=== PATIENT | female | born 1985 | race Asian ===

== ENCOUNTER 2016-10-18 00:11 | Inpatient (IN) | payer SELFPAY ==
[~2016-10-18] VITALS: Ht 160 cm; Wt 63.5 kg
[2016-10-18] MEDS: LR 1,000 ML IV SCH ×4 (00:55→15:19)
[2016-10-18] MEDS ORDERED: LR 1,000 ML IV ONE (01:09)
[2016-10-18 01:15] VITALS: BP_SYST 110
[2016-10-18] MEDS ORDERED: TERBUTALINE SULFATE 1 MG/ML VIAL SUBCUT ONE (01:15)
[2016-10-18 01:25] LABS: BASOPHILS % (AUTO) 0.3 % (0.0-2.0); EOSINOPHILS # (AUTO) 0.1 K/uL (0.0-0.4); HEMOGLOBIN 13.1 g/dL (12.0-16.0); LYMPHOCYTES # (AUTO) 1.8 K/uL (1.0-5.5); MEAN CORPUSCULAR HEMOGLOBIN 33 pg (27-31); MEAN CORPUSCULAR HGB CONC 35 % (32-36); MEAN CORPUSCULAR VOLUME 92 fL (79.0-98.0); MONOCYTES # (AUTO) 0.5 K/uL (0.0-1.0); NEUTROPHILS # (AUTO) 5.3 K/uL (1.8-7.7); NEUTROPHILS % (AUTO) 68.7 % (40.0-70.0); PLATELET COUNT (AUTO) 111 K/uL (130-430); RED BLOOD CELL COUNT(AUTO) 4.01 MIL/uL (4.2-6.2); RED CELL DISTRIBUTION WIDTH 13.2 % (9.0-15.0); WHITE BLOOD COUNT (AUTO) 7.7 K/uL (4.8-10.8)
[2016-10-18] MEDS: OXYTOCIN/NORMAL SALINE 1,000 ML IV SCH ×2 (02:16→21:43)
[2016-10-18] MEDS: NALBUPHINE HCL 10 MG/ML AMP IVP PRN ×2 (06:17→08:33)
[2016-10-18] MEDS ORDERED: fentaNYL CITRATE/PF 100 MCG/2 ML AMP ONE (09:46)
[2016-10-18] MEDS ORDERED: FENT2mCg/mL-ROPIVA0.2%/NS EPID 150 ML EP ONE (09:47)
[2016-10-18] MEDS ORDERED: LR 500 ML IV ONE (10:12)
[2016-10-18] MEDS ORDERED: ePHEDrine sulfate 50 MG/ML VIAL IVP PRN (10:15)
[2016-10-18] MEDS ORDERED: FENT2mCg/mL-ROPIVA0.2%/NS EPID 150 ML EP SCH (10:15)
[2016-10-18] MEDS ORDERED: fentaNYL CITRATE/PF 100 MCG/2 ML AMP EP ONE (10:15)
[2016-10-18] MEDS ORDERED: ACETAMINOPHEN 325 MG TABLET PO PRN (19:45)
[2016-10-18] MEDS ORDERED: METHYLERGONOVINE MALEATE 0.2 MG/ML AMP ONE (21:29)
[2016-10-18] MEDS ORDERED: HYDROcodone/ACETAMIN 5-325 MG TAB (NORCO/ VICODIN) PO PRN (21:45)
[2016-10-18] MEDS ORDERED: DIPH-TET-PERTUS Vaccine 0.5 ML VIAL (ADACEL) I.M. PRN (21:45)
[2016-10-18] MEDS ORDERED: MEASLES,MUMPS&RUBELLA VACC/PF 12500 UNIT/0.5 ML VIAL SUBQ PRN (21:45)
[2016-10-18] MEDS ORDERED: OXYTOCIN 10 UNIT/ML VIAL IM PRN (21:45)
[2016-10-18] MEDS ORDERED: METHYLERGONOVINE MALEATE 0.2 MG/ML AMP IM PRN (21:45)
[2016-10-18] MEDS ORDERED: TEMAZEPAM 15 MG CAPSULE PO PRN (21:45)
[2016-10-18] MEDS ORDERED: DERMOPLAST SPRAY TP PRN (21:45)
[2016-10-18] MEDS ORDERED: OXYCODONE/ACETAMINOPHEN 5-325 TABLET PO PRN (21:45)
[2016-10-18] MEDS ORDERED: ERYTHROMYCIN 0.5% EYE OINT 3.5 GM OP ONE (22:00)
[2016-10-18] MEDS ORDERED: PHYTONADIONE 1 MG/0.5 ML SYR IM ONE (22:00)
[2016-10-18] MEDS ORDERED: HEPATITIS B VIRUS VACCINE-PF PED 10 MCG/0.5 ML I.M. ONE (22:00)
[2016-10-19] MEDS: IBUPROFEN 800 MG TABLET PO PRN ×4 (02:09→20:29)
[2016-10-19 07:09] LABS: HEMATOCRIT 32.6 % (36-48); HEMOGLOBIN 11.1 g/dL (12.0-16.0)
[2016-10-19] MEDS ORDERED: LIDOCAINE PF 1% 30ML(POUR BTL) INJ ONE (15:00)
[2016-10-19] MEDS ORDERED: MINERAL OIL 30 ML UDC PO ONE (15:00)
[2016-10-19] MEDS ORDERED: ROPIVACAINE 40 MG/20 ML AMP EP ONE (15:00)
[2016-10-19] MEDS ORDERED: SENNOSIDES/DOCUSATE SODIUM 1 TAB TABLET(SENOKOT-S) PO SCH (21:00)
[2016-10-20] MEDS: IBUPROFEN 800 MG TABLET PO PRN ×2 (06:28→12:10)
== END 2016-10-20 12:45 | disposition home or self-care (01) | DRG 775 ==
LOC: SPU 00:11
PROVIDERS: ADMIT Obstetrics & Gynecology; ATTEND Obstetrics & Gynecology
PROC: 10E0XZZ Delivery of Products of Conception, External Approach (ICD-10-PCS; principal; 2016-10-18)
PROC: 0W8NXZZ Division of Female Perineum, External Approach (ICD-10-PCS; 2016-10-18)
PROC: 3E0S3CZ (ICD-10-PCS; 2016-10-18)
PROC: 00HU33Z Insertion of Infusion Device into Spinal Canal, Percutaneous Approach (ICD-10-PCS; 2016-10-18)
DX: O69.81X0 Labor and delivery complicated by cord around neck, without compression, not applicable or unspecified (principal); Z37.0 Single live birth; Z3A.39 39 weeks gestation of pregnancy
CPT/HCPCS: 36415; 81002-TC; 85018-TC; 85025; 86592; 86886; 86900; 86901; J2001; J2210; J2300; J2590; J2795; J3010; J7120